=== PATIENT | male | born 2000 | race Caucasian/White ===

== ENCOUNTER 2021-01-04 15:53 | Emergency (ER) | payer OTHER, MEDICAID ==
[~2021-01-04] VITALS: Ht 177.8 cm; Wt 50.8 kg
[2021-01-04 16:30] VITALS: BP 104/73; Ht 177.8 cm; Wt 50.8 kg
[2021-01-04] MEDS ORDERED: MOT800 PO (17:30)
== END 2021-01-04 17:40 | disposition home or self-care (01) ==
LOC: ED 15:53
DX: S20.223A Contusion of bilateral back wall of thorax, initial encounter (principal); M25.511 Pain in right shoulder; M25.512 Pain in left shoulder; V49.49XA Driver injured in collision with other motor vehicles in traffic accident, initial encounter; Y93.I9 Activity, other involving external motion; Y92.488 Other paved roadways as the place of occurrence of the external cause; Y99.8 Other external cause status